=== PATIENT | male | born 1940 | race American Indian/Alaskan Native ===

== ENCOUNTER 2020-06-29 09:41 | Observation (INO) | payer MEDICARE ==
[2020-06-29] MEDS ORDERED: ASPIRIN EC 325 MG TAB PO ONE (10:06)
[2020-06-29 10:57] LABS: Basophils % (Auto) 0.2 % (0.0-1.8); Eosinophils # (Auto) 0.1 K/mm3 (0.0-0.4); Eosinophils % (Auto) 1.5 % (0.0-4.3); Hematocrit 40.3 % (35.5-45.6); Hemoglobin 13.3 gm/dl (11.8-15.2); Lymphocytes # (Auto) 1.5 K/mm3 (1.2-5.4); Lymphocytes % (Auto) 25.9 % (13.4-35.0); Mean Corpuscular HGB Conc 33 % (32-34); Mean Corpuscular Volume 88 fl (84-94); Monocytes # (Auto) 0.5 K/mm3 (0.0-0.8); Monocytes % (Auto) 8.5 % (0.0-7.3); Platelet Count 109 K/mm3 (140-440); Red Cell Distribution Width 14.7 % (13.2-15.2)
[2020-06-29] MEDS ORDERED: SODIUM CHLORIDE 0.9% 500 ML 500 ML IV SCH (11:00)
[2020-06-29 11:06] LABS: Calcium 9.3 mg/dL (8.4-10.2)
[2020-06-29 11:09] LABS: INR 1.17 (0.87-1.13)
[2020-06-29 11:10] LABS: Partial Thromboplastin Time 30.8 Sec. (24.2-36.6)
[2020-06-29] MEDS ORDERED: fentaNYL 100 MCG/2 ML INJ ONE (11:25)
[2020-06-29] MEDS ORDERED: MIDAZOLAM 2 MG/2 ML INJ ONE (11:25)
[2020-06-29] MEDS ORDERED: HEPARIN/NS 5000 UNIT/500ML 1,000 ML IR ONE (11:25)
[2020-06-29] MEDS ORDERED: LIDOCAINE (2%) 20 MG/1 ML VIAL 20 ML MDV INFILTRATI ONE (11:26)
[2020-06-29] MEDS: NITROGLYCERIN SYRINGE 3 ML ONE ×2 (11:55→11:56)
[2020-06-29] MEDS: HEPARIN 10,000 UNITS/10 ML VIAL ONE ×3 (11:55→12:05)
[2020-06-29] MEDS: VERAPAMIL 5 MG/2 ML INJ ONE ×2 (11:55→11:56)
[2020-06-29] MEDS ORDERED: CLOPIDOGREL 300 MG TAB ONE ×2 (12:23→12:36)
[2020-06-29] MEDS ORDERED: ALUM-MAG HYDROXIDE-SIMETHICONE 200-200-20MG/5ML ORAL LIQD 30 ML ONE (12:23)
[2020-06-29] MEDS ORDERED: HYDROcodone/ACETAMINOPHEN 5-325 MG TAB PO PRN (12:39)
[2020-06-29] MEDS ORDERED: ZOLPIDEM 5 MG TAB PO PRN (12:39)
[2020-06-29] MEDS ORDERED: traMADol 50 MG TAB PO PRN (12:39)
[2020-06-29] MEDS ORDERED: ONDANSETRON 4 MG/2 ML INJ IV PRN (12:39)
--- NOTE | 2020-06-29 12:40 | Cardiac Catherization Report ---
CORONARY ANGIOPLASTY REPORT REASON FOR PROCEDURE: The patient is an 80-year-old man with coronary artery disease. He underwent cardiac catheterization at another hospital for chest pain syndrome, found with an 80% stenosis of the mid LAD. He is referred for coronary intervention. PROCEDURES: 1. Coronary angioplasty and stenting of the mid LAD. 2. Sedation time start 11:51, end 12:16. I was present for the entire procedure and supervised the moderate sedation protocol. The patient was prepped and draped in a sterile fashion after informed consent. The right radial site was prepped and draped after a negative El's test. The right radial artery was entered using Seldinger technique followed by placement of a 6-German hydrophilic sheath. Routine radial cocktail was administered via the sheath. We first performed a limited angiography of the right coronary artery using #4 diagnostic right Blade catheter. Following that, we exchanged for an XB 3.0 guiding catheter and advanced the left coronary ostium. Pre-intervention angiograms were taken. A 0.014 inch Tuber Helper 50 guidewire was directed into the LAD, across the _greater than___ 80% stenosis of the mid segment. The lesion was then predilated using a 3.0 mm balloon catheter. We then deployed a 4.0 x 15 mm drug-eluting stent, inflating the stent to optimal pressures. Following stenting, there was an excellent angiographic result, 0 residual stenosis and HERMANN 3 flow maintained down the vessel. The right coronary artery contained mild irregularities, no significant lesions. The circumflex artery contained less than 50% stenosis of its proximal to mid AV groove segment, and this recommended for conservative management. CONCLUSION: Successful angioplasty and stenting of the mid LAD. _A greater than___ 80% stenosis of the mid segment was successfully treated with deployment of a 4.0 x 15 mm drug-eluting stent. Excellent angiographic result. RECOMMENDATION: The patient will be admitted for 23-hour observation, and placed on guideline-directed medical therapy including dual oral antiplatelet therapy. JOB# [id number] MARISOL/EDITH CLAUDIO
--- NOTE | 2020-06-29 12:48 | Event Note ---
Date: 06/29/20 Patient presented for outpatient PCI. 80% mid-LAD successfully treated with a 4.0mm DE stent, excellent result. Admit for post PCI observation. Anticipate discharge in am on ASA/Plavix and other GDMT.
[2020-06-29] MEDS ORDERED: ACETAMINOPHEN 325 MG TAB PO PRN (13:00)
[2020-06-29] MEDS ORDERED: SODIUM CHLORIDE 0.9% 1000 ML 1,000 ML IV SCH (13:00)
[2020-06-29] MEDS: carvediloL 25 MG TAB PO SCH (22:46)
[2020-06-30 05:28] LABS: Eosinophils # (Auto) 0.1 K/mm3 (0.0-0.4); Eosinophils % (Auto) 2.1 % (0.0-4.3); Hematocrit 37.9 % (35.5-45.6); Hemoglobin 12.3 gm/dl (11.8-15.2); Lymphocytes # (Auto) 1.7 K/mm3 (1.2-5.4); Lymphocytes % (Auto) 25.5 % (13.4-35.0); Mean Corpuscular HGB Conc 33 % (32-34); Mean Corpuscular Volume 88 fl (84-94); Monocytes # (Auto) 0.7 K/mm3 (0.0-0.8); Monocytes % (Auto) 9.9 % (0.0-7.3); Platelet Count 101 K/mm3 (140-440); Red Blood Count 4.31 M/mm3 (3.65-5.03); Red Cell Distribution Width 14.8 % (13.2-15.2)
[2020-06-30 05:30] LABS: Basophils % (Auto) 0.2 % (0.0-1.8)
[2020-06-30 06:00] LABS: Creatine Kinase MB 3.6 ng/mL (0.0-4.0)
[2020-06-30 06:05] LABS: BUN/Creatinine Ratio 12; Blood Urea Nitrogen 13 mg/dL (9-20); Calcium 9.2 mg/dL (8.4-10.2); Hemolysis Index 5
--- NOTE | 2020-06-30 08:40 | XRay Report ---
CHEST 1 VIEW INDICATION / CLINICAL INFORMATION: post pci. Dyspnea FINDINGS: SUPPORT DEVICES: None. HEART / MEDIASTINUM: Borderline enlarged. LUNGS / PLEURA: Low lung volumes with faint bibasilar opacity which may represent atelectasis versus pneumonitis. The upper lungs are clear. No large pleural effusion Signer Name: Jack Villanueva MD Signed: 06/30/2020 8:35 AM Workstation Name: [id number]
--- NOTE | 2020-06-30 09:20 | Short Stay Summary ---
Short Stay Documentation Date of service: 06/30/20 - History H&P: obtained from office - Allergies and Medications Current Medications: Allergies erythromycin base Adverse Reaction (Verified 06/29/20 10:25) Unknown Home Medications Medication Instructions Recorded Confirmed Last Taken Type Aspirin EC 81 mg PO DAILY 06/29/20 06/29/20 06/28/20 History 81 MG AtorvaSTATin 40 mg PO DAILY 06/29/20 06/29/20 06/28/20 History 40 MG Dorzolamide HCl/Timolol Maleat 2 drops OU DAILY 06/29/20 06/29/20 06/28/20 History 2 Furosemide [Lasix] 40 mg PO DAILY 06/29/20 06/29/20 06/28/20 History 40 MG Latanoprost 0.005% 1 drops OU QHS 06/29/20 06/29/20 06/28/20 History 1 Mineral Oil/Hydrophil Petrolat 1 inch TRANSDERMA DAILY 06/29/20 06/29/20 06/28/20 History [Aquaphor Healing Ointment] 1 Oxybutynin [Ditropan] 5 mg PO DAILY 06/29/20 06/29/20 06/28/20 History 5 mg Triamcinolone Aceton 0.1% (Nf) 2 drops OU BID 06/29/20 06/29/20 06/28/20 History 2 carvediloL [Coreg] 25 mg PO BID 06/29/20 06/29/20 06/28/20 History 25 mg Active Medications Acetaminophen (Acetaminophen 325 Mg Tab) 650 mg PO Q4H PRN PRN Reason: Pain MILD(1-3)/Fever >100.5/TRENT Hydrocodone Bitart/Acetaminophen (Hydrocodone/Acetaminophen 5-325 Mg Tab) 1 each PO Q6H PRN PRN Reason: Pain, Moderate (4-6) Aspirin (Aspirin Ec 325 Mg Tab) 325 mg PO QDAY [facility] Atorvastatin Calcium (Atorvastatin 40 Mg Tab) 40 mg PO QHS [facility] Last Admin: 06/29/20 22:46 Dose: 40 mg Documented by: Carvedilol (Carvedilol 25 Mg Tab) 25 mg PO BID [facility] Last Admin: 06/29/20 22:46 Dose: 25 mg Documented by: Clopidogrel Bisulfate (Clopidogrel 75 Mg Tab) 75 mg PO QDAY [facility] Sodium Chloride (Nacl 0.9% 1000 Ml) 1,000 mls @ 75 mls/hr IV DIRECT [facility] Stop: 06/30/20 12:59 Isosorbide Mononitrate (Isosorbide Mononitrate Er 30 Mg Tab) 30 mg PO QDAY [facility] Last Admin: 06/29/20 14:35 Dose: 30 mg Documented by: Ondansetron HCl (Ondansetron 4 Mg/2 Ml Inj) 4 mg IV Q8H PRN PRN Reason: N/V unrelieved by Reglan Tramadol HCl (Tramadol 50 Mg Tab) 50 mg PO Q4H PRN PRN Reason: Pain, Mild (1-3) Zolpidem Tartrate (Zolpidem 5 Mg Tab) 5 mg PO QHS PRN PRN Reason: Sleep - Physical exam General appearance: no acute distress HEENT: PERRLA Lungs: Clear to auscultation Heart: Regular rate, Normal S1, Normal S2 - Hospital course Hospital course: Noted sinus bradycardia, rate ranging in the 50's on telemetry. Patient remained asymptomatic. Will reduce the dosage of Carvedilol to 12.5 mg twice daily on discharge. Stable overnight observation. - Disposition Condition at discharge: Good Disposition: [id number] TO HOME OR SELFCARE Short Stay Discharge Plan Activity: advance as tolerated Weight Bearing Status: Partial Weight Bearing Diet: low fat, low cholesterol, low salt Wound: open to air, keep clean and dry Additional Instructions: Reduce Carvedilol to 12.5 mg twice daily. Follow up with: [facility] [Primary Care Provider] - 7 Days LUIS ANGEL EWING MD [Staff Physician] - 7 Days Forms: CardCat PCI D/C Instructions Prescriptions: ISOSORBIDE MONOnitrate [Imdur ER] 30 mg PO QDAY #30 tablet Clopidogrel [Plavix] 75 mg PO QDAY #30 tablet
[2020-06-30] MEDS ORDERED: ASPIRIN EC 325 MG TAB PO SCH (10:00)
[2020-06-30] MEDS ORDERED: CLOPIDOGREL 75 MG TAB PO SCH (10:00)
[2020-06-30 10:28] VITALS: BP 110/56
[2020-06-30] MEDS: carvediloL 25 MG TAB PO SCH (10:29)
== END 2020-06-30 12:30 | disposition home or self-care (01) ==
LOC: CATHLABREC 09:41 → 4A 12:40
PROVIDERS: ADMIT Internal Medicine Cardiovascular Disease; ATTEND Internal Medicine Cardiovascular Disease
DX: I25.10 Atherosclerotic heart disease of native coronary artery without angina pectoris (principal); Z98.61 Coronary angioplasty status
CPT/HCPCS: 36415; 71045; 80048; 82550; 82553; 84484; 85025; 85610; 85730; 92928; 93005; A9270; C1725; C1769; C1874; C1887; C1894; C9600; G0378; J1644; J2250; J3010; J7040; Q9967